=== PATIENT | female | born 1990 ===

== ENCOUNTER 2024-12-12 09:27 | Outpatient (AMB) | payer OTHER, SELFPAY ==
--- NOTE | 2024-12-12 09:30 | A.OFFVIS_ITS ---
Intake Visit Reasons: 1 yr sz Allergies No Known Allergies Allergy (Verified 12/12/24 09:31) HPI Comments Details: 34-year-old woman with reported nocturnal generalized seizures. Her exam, MRI, and EEGs were unremarkable. She was prescribed levetiracetam that she never took. She was hesitant to take medication as one of her children had medical needs that required significant care and she was concerned medication may impact her ability to provide this. She denied any spells in 2023. She was doing okay. She was not taking any medications. She may have had one spell during sleep about 5 or 6 months ago as she woke up feeling sore the next day. No tongue bite or incontinence. Sleep was up and down. She was under some stress. She had five children, aged 10-19. Review of Systems Const Denies chills, Denies daytime sleepiness, Denies difficulty sleeping, Denies fatigue, Denies fever(s), Denies frequent falls, Denies headache(s), Denies increased appetite, Denies poor appetite, Denies snoring, Denies weakness, Denies weight gain and Denies weight loss Eyes Denies loss of vision ENT Denies vertigo, Denies dizziness and Denies headache(s) Card Denies chest pain at rest, Denies chest pain with activity, Denies syncope, Denies leg edema and Denies palpitations Resp Denies snoring GI Denies constipation, Denies heartburn, Denies diarrhea and Denies nausea Denies urinary frequency, Denies urinary incontinence and Denies urinary urgency Musc Denies abnormal gait, Denies numbness and Denies tingling Skin/Breast Denies dry skin and Denies rash Neuro Denies abnormal gait, Denies vertigo, Denies dizziness, Denies syncope, Denies frequent falls, Denies headache(s), Denies lack of coordination, Denies loss of vision, Denies memory loss, Denies numbness, Denies restless legs, Denies seizure-like activity, Denies tingling, Denies paresthesias, Denies tremor(s) and Denies weakness Psych Denies anxiety, Denies depression, Denies auditory hallucinations, Denies memory loss, Denies visual hallucinations and Denies suicidal ideation Endo Denies fatigue and Denies palpitations Physical Exam Const Other: General Appearance:? normal, in no acute distress. Skin:? no rashes, no significant birthmarks. Heart:? S1, S2 normal, no murmurs. Lungs:? clear anteriorly and posteriorly. Extremities:? no edema. Psych:? alert, oriented, cognitive function intact, cooperative with exam. Neuro Other: Mental Status:?Normal attention, orientation, memory and affect.? Cranial Nerves:?Pupils are equal, round and reactive to light. External occular muscles are intact. Visual kirby are full. Face is symmetrical. Facial sensations are normal. Tongue is midline. Palate elevates symmetrically. Shoulder shrugging is normal. Hearing to bedside conversation is normal. Sensory Exam:?....? Coordination:?No ataxia,?no titubation.? Gait Exam: Within normal limits. Extrapyramidal System:?No tremor, rigidity with normal facial expressions.? Pronator Drift:?Not present.? Involuntary Movements:?No tremors seen.? Speech:?Normal.? Results Reviewed Results Reviewed: MRI brain WWO at [place] in Nov 2021: WNL Amb 48 hr EEG at [facility] in Jan 2022: WNL with no events reported Routine EEG at [facility] in Dec 2021: WNL Assessment & Plan Assessment & Plan (1) Seizure disorder: Code(s): G40.909 - Epilepsy, unspecified, not intractable, without status epilepticus Category: Medical Plan: She was educated on this condition and its treatment, as well as on risks associated with seizures and inadequate treatment. She stated episodes were happening less frequently now, and was not interested in starting daily medication (such as levetiracetam) at this time. Start lorazepam 1mg 1 tablet as needed for seizures, use/side effects reviewed. She preferred to keep follow up for 1 year. She was advised to contact office for any new/worsening symptoms. Medications: New lorazepam 1 mg PO DAILY PRN 10 tabs 0RF seizures 30 days Coding Level of Care Code Est Pt Level 4 (37177) Diagnoses Seizure disorder G40.909
--- OUTSIDE RECORDS SUMMARY | 2024-12-12 11:18 | XMS_ITS ---
Author Name [facility] [place] Organization Unknown Care Team Organization Name Specialty Phone Email Start Date End Da te [facility] Estelle Tomlinson MD Primary Care 09/23/2022 11/07/2023 [facility] Jacobo Hearn Primary Care 01/26/20222023
--- OUTSIDE RECORDS SUMMARY | 2024-12-12 11:19 | XMS_ITS | Clinical Summary ---
Author Organization [address] [place] [address] Address [address] [place] [address] Phone Care Team Providers Care [employer]er Name Role Phone Tiff Ledesma MD Primary Care Provider [phone] Allergies Active Allergy Reactions Criticality Noted Date Comments [place] 09/09/2022 [place] Meal Cefaclor 01/13/2013 Other Reaction(s): Rash/Dermatitis Phenergan Plain 09/25/2012 anxiety Medications cetirizine (ZyrTEC) 10 mg tablet TAKE 1 TABLET BY MOUTH DAILY. SEASONALLY NEEDED 4 Active albuterol HFA (ProAir HFA) 90 mcg/actuation inhaler INHALE 2 PUFFS INTO THE LUNGS EVERY 4 HOURS NEEDED FOR COUGH, WHEEZING OR SHORTNESS OF BREATH. 2 Active UNABLE TO FIND Med Name: SPACER DEVICE-ADULT Sig: Use as needed with inhaler Active Active Problems Problem Noted Date Diagnosed Date Anxiety 02/18/2020 PCOS (polycystic ovarian syndrome) 01/04/2020 Allergic rhinitis 10/21/2017 Post depression 10/21/2017 Overview (03/02/2024): 2014 Kidney, medullary sponge 05/31/2014 Recurrent UTI 05/31/2014 Immunizations Name Administration Dates Next Due DTaP (Infanrix) 6wks to less than 7yo ,08/22/1989,1988,1988,1988 LFvU-KEI-FIL (Pentacel) 2mo to less than 5yo 01/16/1990 HPV, Quadrivalent 11/05/2011,11/03/2006 Hepatitis B Pediatric (Enger ix B; Recombivax HB) to less than 20 yo 01/14/1995,07/05/1994,06/03/1994 IPV Inactivated polio (Ipol) 6wks and older 1992,08/22/1989,1988,1988 Influenza Quadravalent, MDCK , 0.5ml, preservative free (Flucelvax) 6mo and older 05/01/2021,01/04/2020 Influenza Quadravalent, MDCK , 0.5ml, with preservative (Flucelvax) 6mo and older 01/20/2017 Influenza trivalent, 0.5mL, preservative free (Fluarix; FluLaval; Fluzone) ages 6mo and older (Afluria) 3 years and older 01/05/2016,01/18/2014 Influenza trivalent, with preservative (Fluzone; Afluria) 6mo and older 01/04/2011,02/05/2010 Influenza, Unspecified 05/01/2021 MMRV, measles mumps rubella and varicella live (Proquad) 4yo to less than 7yo 10/17/1997,08/22/1989 PPD Test 07/05/2016,09/13/2014 Tdap Tetanus diptheria acell ular pertussis (Boostrix; Adacel) 7yo and older 06/09/2022,09/28/2011,12/16/1999 Varicella live (Varivax) 12m o and older 07/13/1992 Surgical History Surgery Date Site/Laterality Comments OVARIAN CYST REMOVAL 2014 PROCEDURE: RI OVARIAN CYSTECTOMY UNI/BI; COMMENT: Patient states it was done transvaginally SECTION PROCEDURE: HISTORICAL ; COMMENT: X5, 2006,2007, 2009.2011, 2014 TONSILLECTOMY 1995 PROCEDURE: HISTORICAL TONSILLECTOMY OTHER SURGICAL HISTORY 2006 PROCEDURE: RI DILATION & CURETTAGE DX&/THER NONOBSTETRIC TYMPANOSTOMY TUBE PLACEMENT 2000 PROCEDURE: HISTORICAL PE TUBES HYSTEROSCOPY 08/14/2015 PROCEDURE: RI HYSTEROSCOPY BX ENDOMETRIUM&/POLYPC W/WO D&C Medical History Medical History Date Comments Recurrent UTI 05/31/2014 DX:Recurrent UTI Medullary sponge kidney of b oth kidneys DX: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 Post depression 10/21/2017 DX:Post p artum depression; COMMENT: 2014 MRSA (methicillin resistant Staphylococcus aureus) infection 10/21/2017 DX:MRSA (methicillin resistant Staphylococcus aureus) infection; COMMENT: 10/13/2017, Buttock wound Allergic rhinitis 10/21/2017 DX:Allergic rh initis MRSA (methicillin resistant Staphylococcus aureus) infection 10/21/2017 DX:MRSA (methicillin resistant Staphylococcus aureus) infection; COMMENT: 10/13/2017, Buttock wound Anxiety state DX:Anxiety state Family History Medical History Relation Name Comments Colon cancer Father Prostate cancer , Hypertension, CVA, Dementia Heart attack Maternal Grandfather Prostate cancer Maternal Grandfather stro ke,alzeheimer's, Hypertension Hypertension Maternal Grandmother Mental illness Mother anxiety, thyroid,fibromyalgia, CVA, HTN, Dementia, Asthma Other: Rodriguez Hirschhorn syndrome Son 1 Other: autism Son 1 Other: gtube fed Son 1 Other: autism Son 2 Relation Name Status Comments Father Alive Maternal Grandfather Maternal Grandmother Mother Alive Son 1 Alive Son 2 Alive Social History Tobacco Use Types Packs/Day Years Used Date Smoking Tobacco: Never Smokeless Tobacco: Never Alcohol Use Standard Drinks/Week Comments No 0 (1 standard drink = 0.6 oz pur e alcohol) Comments Unknown Sex and Gender Information Value Date Recorded Sex Assigned at Not on file Legal Sex Female 5:41 AM EST Gender Identity Not on file Sexual Orientation Not on file Obstetrics History Last Filed Vital Signs Vital Sign Reading Time Taken Comments Blood Pressure 100/80 12/02/2023 9:04 AM EDT Pulse 72 12/02/2023 9:04 AM EDT Temperature - - Respiratory Rate - - Oxygen Saturation - - Inhaled Oxygen Concentration - - Weight 81.7 kg (180 lb 3.2 oz) 12/02/2023 9:04 A M EDT Height 157.5 cm (5' 2 ) 12/02/2023 9:04 AM EDT Body Mass Index 32.96 12/02/2023 9:04 AM EDT Plan of Treatment Upcoming Encounters Date Type Department Care Team ([facility] st Contact Info) Description 12/17/2024 9:15 AM EDT Office Visit Internal Medicine - [address] [place] [address] Tiff Ledesma MD [address] [facility] [address] [place] [address] 04/18/2025 10:30 AM EST Consult Bariatric Surgery - [address] [place] [address] Clint Verduzco MD [facility] [place] [phone] Health Maintenance Due Date Last Done Comments HPV Vaccines (3 - 3-dose series) 01/28/2012 11/05/2011, 11/03/2006 HIV Screening 02/27/2022 Social Influencers of Health Screening 02/27/2022 Depression Screening 03/21/2024 COVID-19 Vaccine ( season) 2024 Influenza Vaccine (#1) 2024 , 05/01/2021, 01/04/2020, Additional history exists Cervical Cancer Screening: HPV 07/14/2026 07/14/2021 Cholesterol Screening (Lipid Panel) 08/28/2027 08/27/2022 DTaP,Tdap,and Td Vaccines (9 - Td or Tdap) 06/09/2032 06/09/2022, 09/28/2011, 12/16/1999, Additional history exists HIB Vaccines Completed 01/16/1990 IPV Vaccines Completed 1992, 12/20, 08/22/1989, Additional history exists Hepatitis B Vaccines Completed 01/14/1995, 07/05/1994, 06/03/1994 MMR Vaccines Completed 10/17/1997, 08/22/1989 Varicella Vaccines Completed 10/17/1997, 0 07/13/1992, 08/22/1989 Hepatitis C Screening Completed 08/23/2017 Hepatitis A Vaccines Aged Out No long er eligible based on patient's age to complete this topic Meningococcal ACWY Vaccine Aged Out N o longer eligible based on patient's age to complete this topic Meningococcal B Vaccine Aged Out No l onger eligible based on patient's age to complete this topic Pneumococcal Vaccine: Pediatrics (0 to 5 Years) and At-Risk Patients (6 to 49 Years) Aged Out No longer eligible based on patient's age to complete this topic RSV Immunization Patients Under 20 months Aged Out No longer eligible based on patient's age to complete this topic Procedures Procedure Name Priority Date/Time Associated Diagnosis Comments LIPID PANEL Routine 08/27/2022 HPV Routine 07/14/2021 HEPATITIS C SCREENING Routine 08/23/2017 from Last 3 Months or Most Recently Relevant to Health Maintenance Results * (ABNORMAL) Lipid panel (08/27/2022) [facility] LDL/HDL Ratio 4 0 - 4 Triglycerides 176(A) 0 - 150 mg/dL Cholesterol 164 0 - 200 mg/dL HDL 39(A) >=40 mg/dL LDL Cholesterol 90 0 - 100 mg/dL Blood Venous blood specimen / Unknown Historical Provider LAB BLOOD ORDERABLES Lisa l Result * Cervical Cancer Screening: HPV (07/14/2021) [facility] Cervical Cancer Screening: HPV negative, abstracted Historical Provider HEALTH MAINTENANCE Final Result * Hepatitis C Screening (08/23/2017) [facility] Hepatitis C Screening abstracted Historical Provider HEALTH MAINTENANCE Final Result from Last 3 Months or Most Recently Relevant to Health Maintenance Insurance HEALTH PLAN Care Teams [employer] Installer Relationship Specialty Start Date End Date Tiff Ledesma MD [address] [place] [phone] PCP - General Internal Medicine 06/07/24
== END 2024-12-12 09:46 | disposition home or self-care (01) ==
LOC: HO.HSM 09:27
PROVIDERS: PCP Pediatrics; Referring Provider Pediatrics; Visit Provider Registered Nurse
DX: G40.909 Epilepsy, unspecified, not intractable, without status epilepticus (principal)
CPT/HCPCS: 99214

== ENCOUNTER → 2024-12-12 09:27 | Outpatient (BNVA) | payer OTHER, SELFPAY | PROVIDERS: PCP Pediatrics; Referring Provider Pediatrics; Visit Provider Registered Nurse | DX: G40.409 Other generalized epilepsy and epileptic syndromes, not intractable, without status epilepticus (principal) | CPT/HCPCS: 99212 ==